=== PATIENT | male | born 1980 | race Two or more races ===

== ENCOUNTER 2025-03-08 10:06 | Emergency (ER) | payer MEDICAID, OTHER ==
[~2025-03-08] VITALS: Ht 185.4 cm; Wt 161.7 kg
--- NOTE | 2025-03-08 10:39 | ED.PDOC ---
History of Present Illness HPI Comments HPI: 45y M who presents to the ED for chief complaint of spasms. - pt states for the past 1 hour, he has been having spasms in neck with associated whole body chills - pt states he is ETOH drinker and states he drinks daily and las night drank approx. 25 beers which he states is normal - pt states he last drank 1 hours prior and states he started having symptoms since - pt in the ED, otherwise is ambulating with scooter due to recent L foot surgery - pt otherwise denies drug use or illicit substance use Past Medical history: anxiety, depression, DM, hyperlipidemia, HTN Past Surgical history: cardiac stent, L foot surgery, bilateral shoulder surgery Medications: Plavix, Lexapro, losartan Allergies: nkda Social History: heavy ETOH, denies tobacco use, denies drug use HPI: Poor Historian. REVIEW OF SYSTEMS: CONSTITUTIONAL: Denies acute: fever, diaphoresis, HEAD: Denies acute: headache, photophobia Eyes: Denies acute: Double vision, vision loss, eye pain, eye discharge. EARS: Denies acute: tinnitus, hearing loss, ear discharge, ear pain, THROAT: Denies acute: sore throat, swelling, difficulty swallowing , pain with swallowing, change in voice. NECK: Denies acute: neck pain, neck swelling, stiff neck. HEART: Denies acute : chest pain, palpitations, LUNGS: Denies acute: SOB, wheezing, cough, hemoptysis ABDOMEN: Denies acute: abdominal pain, Nausea, Vomiting, diarrhea, melena , hematemesis, hematochezia SKIN: Denies acute: rash, redness, lesions, itchiness. EXTREMITIES: Denies acute: calf pain, numbness, weakness, denies pain in extremity. Denies acute: Low back pain. Neuro: Denies acute: focal neurological deficit, motor or sensory focal neurological deficit, seizure like activity, confusion, dizziness, change in mental status, loss of bowel or bladder function, cauda equina like symptoms. : Denies acute: dysuria, hematuria, flank pain, increase in urinary frequency. PSYCH: Denies acute: hallucination, suicidal ideation, homicidal ideation. PHYSICAL EXAM: General: -----mild---acute distress, awake and alert. Head: normocephalic, atraumatic. Neck: supple, trachea is midline, no swelling. Throat: Normal phonation. Eyes:, no erythema, no purulent discharge, no proptosis, no icterus. Heart: regular tachycardia, no significant murmur appreciated. Lungs: no apparent respiratory distress, Able to speak in full sentences. No wheezing, no rhonchi, no crackles. No stridors Clear to auscultation bilaterally. Abdomen: non tender to palpation, non distended, soft, no guarding, no rebound, + bowel sounds. Obese Neuro: Awake, Alert, oriented to name, self, situation, follows commands. Slight tremors. GCS=15. Speech is normal. Skin: no petechia, no purpura, no cyanosis, non-pale, not jaundice. Lower extremities: --2/4 bilateral - Pitting edema no deformity, no focal swelling, no calf TTP. Makes eye contact. moves all four extremities. Face: no apparent facial droop. Ambulating in the ED with a scooter ED COURSE: Chief Complaint: Withdrawal Time Seen by MD: 10:59 Primary Care Provider: LAYLA Banerjee Notes: Medications, Allergies Allergies: Coded Allergies: NO KNOWN ALLERGIES (Unverified , 03/08/25) Information Source: Patient Mode of Arrival: Ambulatory Was a procedure done? Was a procedure done?: No Differential Dx Considerations may include: Includes but not limited to thyroid disease, encephalopathy, electrolyte abnormality, sepsis, infection, intracranial pathology, drug adverse effects, arrhythmia, kidney insufficiency, ACS, CVA, malignancy, anemia X-Ray, Labs, Meds, VS Vital Signs Date Time Temp Pulse Resp B/P (MAP) Pulse Ox O2 Delivery O2 Flow Rate FiO2 03/08/25 11:03 98.9 99 16 143/81 (101) 94 98.9 03/08/25 11:03 99 17 94 Room Air 03/08/25 10:42 91 03/08/25 10:24 99.2 94 19 121/75 (90) 96 99.2 Lab Test 03/08/25 13:48 03/08/25 11:53 03/08/25 10:50 03/08/25 10:28 Range/Units Lactic Acid Level 2.5 *H 3.4 *H 0.4-2.0 mmol/L Troponin I High Sensitivity < 3 L 3 L 3 L </=54 ng/L White Blood Count 19.3 H 4.4-10.8 10^3/uL Red Blood Count 5.32 4.5-5.90 10^6/uL Hemoglobin 15.8 13.5-17.5 g/dL Hematocrit 45.4 41.0-53.0 % Mean Corpuscular Volume 85.3 80.0-100.0 fL Mean Corpuscular Hemoglobin 29.6 28.0-32.0 pg Mean Corpuscular Hemoglobin Concent 34.7 32.0-36.0 g/dL Red Cell Distribution Width 14.2 11.8-14.3 % Platelet Count 198 140-450 10^3/uL Mean Platelet Volume 7.8 6.9-10.8 fL Neutrophils (%) (Auto) 91.7 H 37.0-80.0 % Lymphocytes (%) (Auto) 3.5 L 10.0-50.0 % Monocytes (%) (Auto) 4.6 0.0-12.0 % Eosinophils (%) (Auto) 0.0 0.0-7.0 % Basophils (%) (Auto) 0.2 0.0-2.0 % Neutrophils # (Auto) 17.7 H 1.6-8.6 10 ^3/uL Lymphocytes # (Auto) 0.7 0.4-5.4 10 ^3/uL Monocytes # (Auto) 0.9 0-1.3 10 ^3/uL Eosinophils # (Auto) 0 0-0.8 10 ^3/uL Basophils # (Auto) 0 0-0.2 10 ^3/uL Nucleated Red Blood Cells 0.0 % Prothrombin Time 11.4 9.3-11.8 sec Prothrombin Time INR 1.08 0.9-1.15 Activated Partial Thromboplast Time 30.3 24.5-34.5 SEC Sodium Level 132 L 136-145 mmol/L Potassium Level 3.9 3.5-5.1 mmol/L Chloride Level 99 98-107 mmol/L Carbon Dioxide Level 19 L 20-31 mmol/L Anion Gap 14 5-15 Blood Urea Nitrogen 9 9-23 mg/dL Creatinine 0.89 0.700-1.30 mg/dL Glomerular Filtration Rate Calc 108 >90 mL/min BUN/Creatinine Ratio 10.1 10.0-20.0 Serum Glucose 149 H 74-106 mg/dL Calcium Level 9.2 8.7-10.4 mg/dL Magnesium Level 1.3 L 1.6-2.6 mg/dL Total Bilirubin 1.2 H 0.2-1.0 mg/dL Aspartate Amino Transferase (AST) 47 H <34 U/L Alanine Aminotransferase (ALT) 59 H 7-40 U/L Alkaline Phosphatase 82 46-116 U/L B-Type Natriuretic Peptide 59.70 0-100 pg/mL Total Protein 7.6 5.7-8.2 g/dL Albumin 4.5 3.2-4.8 g/dL Plasma/Serum Blood Alcohol 12.7 H <10 mg/dL Urine Color Colorless Yellow Urine Clarity Clear Clear Urine pH 5.0 5.0-9.0 Urine Specific [place] 1.004 1.001-1.035 Urine Protein Negative Negative Urine Ketones Trace Negative Urine Blood Negative Negative /uL Urine Nitrite Negative Negative Urine Bilirubin Negative Negative Urine Urobilinogen Normal Negative mg/dL Urine Leukocyte Esterase Negative Negative /uL Urine RBC <1 0 - 3 /hpf Urine Microscopic WBC < 1 0-3 /HPF Urine Squamous Epithelial Cells Few <5 /hpf Urine Bacteria Few H None Seen /hpf Urine Glucose Normal Normal mg/dL Urine Opiates Screen Neg NEGATIVE Urine Fentanyl Screen Neg NEGATIVE Urine Barbiturates Screen Neg NEGATIVE Urine Phencyclidine Screen Neg NEGATIVE Urine Amphetamines Screen Neg NEGATIVE Urine Benzodiazepines Screen Neg NEGATIVE Urine Cocaine Screen Neg NEGATIVE Urine Cannabinoids Screen Neg NEGATIVE Microbiology Date/Time Source Procedure Growth Status 03/08/25 12:46 Blood Blood Culture - Preliminary NO GROWTH AFTER 24 HOURS OF INCUBATION. Resulted 03/08/25 12:39 Blood Blood Culture - Preliminary NO GROWTH AFTER 24 HOURS OF INCUBATION. Resulted [facility] [id number] [place] [id number] Ph: [phone] DIAGNOSTIC IMAGING Diagnostic Imaging Report : [id number] Signed PATIENT: JULES PETERSEN ACCT: [id number] UNIT: [id number] : 1980 LOC: ER ROOM / BED: / AGE / SEX: 45 / M ADM STATUS: REG ER SERVICE 1153 ORDERING PHYSICIAN: KENNA ALLISON DO PROCEDURE(s): BLDVT - BiLat Lower DVT REASON: sepsis ORDER NUMBER(s): [id number], ACCESSION NUMBER(s): [id number] Bilateral lower extremity venous duplex Clinical History: sepsis Comparison: None Technique: Duplex Doppler evaluation of the deep venous systems of both lower extremities from the common femoral veins to the popliteal veins including color Doppler and spectral/pulsed waveform analysis was performed. Findings: RIGHT SIDE: The common femoral vein demonstrates appropriate compressibility and waveform variability. There is compressibility/patency of the great saphenous vein at the proximal thigh. The femoral vein demonstrates appropriate compressibility and waveform variability. The deep femoral vein demonstrates appropriate compressibility and waveform variability. The popliteal vein demonstrates appropriate compressibility and waveform variability. There is normal compressibility at the tibioperoneal trunk. LEFT SIDE: The common femoral vein demonstrates appropriate compressibility and waveform variability. There is compressibility/patency of the great saphenous vein at the proximal thigh. The femoral vein demonstrates appropriate compressibility and waveform variability. The deep femoral vein demonstrates appropriate compressibility and waveform variability. The popliteal vein demonstrates appropriate compressibility and waveform variability. There is normal compressibility at the tibioperoneal trunk. Impression: No right or left femoropopliteal venous thrombosis. ATED BY: DWAYNE DAVIES MD DICTATED DATE/TIME: 03/08/251248 SIGNED BY: DWAYNE DAVIES MD SIGNED DATE/TIME: 03/08/251248 CC: [place] [address] Ph: [phone] DIAGNOSTIC IMAGING Diagnostic Imaging Report : [id number] Signed PATIENT: JULES PETERSEN ACCT: [id number] UNIT: [id number] : 1980 LOC: ER ROOM / BED: / AGE / SEX: 45 / M ADM STATUS: REG ER SERVICE 1035 ORDERING PHYSICIAN: KENNA ALLISON DO PROCEDURE(s): CXRP - CHEST PORTABLE REASON: CHILLS ORDER NUMBER(s): [id number], ACCESSION NUMBER(s): [id number] EXAM: XY CHEST PORTABLE HISTORY: CHILLS COMPARISON: None TECHNIQUE: Portable AP view of the chest was performed. FINDINGS: No pneumothorax, consolidative infiltrates, or pulmonary edema. There is mild central peribronchial thickening. The heart is not enlarged. There is thoracic degenerative disc disease. IMPRESSION: Mild reactive airways disease. The lungs are otherwise clear. ATED BY: HECTOR GRIFFITH MD DICTATED DATE/TIME: 03/08/25 1109 SIGNED BY: HECTOR GRIFFITH MD SIGNED DATE/TIME: 03/08/25 1109 CC: Time of 1ST Reevaluation: 00:00 Reevaluation 1ST: Patient Education/Counseling: Diagnosis, Treatment Family Education/Counseling: No Family Present Comments Patient presented with the above HPI.------workup was initiated. patient was found with the above mentioned diagnosis. the following medications were ordered: please refer to order lists of meds and tests obtained by myself Dr. Allison. Patient ED course and VS have been stabilized. Patient has been reassessed in the ED and remained in a stable condition. Pertinent incidental findings were discussed with the patient and/or family. Patient/family voices understanding and is agreeable with plan. Patient has been observed in the ED adequate length of time to insure improvement/stability. Escalation of care considered: Consideration of escalation to observation or admission Sepsis protocol was initiated with weight based fluid resuscitation. Patient was ADMITTED to the medicine team for further evaluation and treatment of their presentation. I later I was informed that the patient left against medical advice. All the reports of any imaging studies that were ordered by myself were reviewed by myself. Departure 1 Departure Time of Disposition: 11:54 Impression: Primary Impression: Sepsis Additional Impressions: Leukocytosis Hypomagnesemia Alcohol abuse Disposition: ADMITTED INPATIENT Admit to: Tele Condition: Guarded Discharged With: Self Critical Care Note Critical Care Time?: Yes (45 min-critical care time only) I personally scribed for KENNA ALLISON DO ([email or web address]) on 03/08/25 at 10:39. Electronically submitted by Linda Gutierrez ([email or web address]). I personally scribed for KENNA ALLISON DO ([email or web address]) on 03/08/25 at 11:00. Electronically submitted by Linda Gutierrez ([email or web address]). I personally scribed for KENNA ALLISON DO ([email or web address]) on 03/08/25 at 19:37. Electronically submitted by Linda Gutierrez ([email or web address]). KENNA ALLISON DO Mar 08, 2025 10:39
[2025-03-08] MEDS: SODIUM CHLORIDE 0.9% 1,000 ML IV ONE (10:45)
[2025-03-08 11:01] LABS: Basophils # (auto) 0 10 ^3/uL (0-0.2); Basophils % (auto) 0.2 % (0.0-2.0); Eosinophils # (auto) 0 10 ^3/uL (0-0.8); Hematocrit 45.4 % (41.0-53.0); Hemoglobin 15.8 g/dL (13.5-17.5); Lymphocytes # (auto) 0.7 10 ^3/uL (0.4-5.4); Lymphocytes % (auto) 3.5 % (10.0-50.0); Mean Corpuscular Hemoglobin 29.6 pg (28.0-32.0); Mean Corpuscular Hgb Conc. 34.7 g/dL (32.0-36.0); Mean Corpuscular Volume 85.3 fL (80.0-100.0); Monocytes # (auto) 0.9 10 ^3/uL (0-1.3); Monocytes % (auto) 4.6 % (0.0-12.0); Neutrophils # (auto) 17.7 10 ^3/uL (1.6-8.6); Neutrophils % (auto) 91.7 % (37.0-80.0); Platelet Count (auto) 198 10^3/uL (140-450); Red Blood Cells 5.32 10^6/uL (4.5-5.90); Red Cell Distribution Width 14.2 % (11.8-14.3); White Blood Cell 19.3 10^3/uL (4.4-10.8)
[2025-03-08 11:03] VITALS: BP 143/81; PULSE 99; RESP 17; TEMP 98.9; O2SAT 94
--- NOTE | 2025-03-08 11:11 | DVH ---
EXAM: XY CHEST PORTABLE HISTORY: CHILLS COMPARISON: None TECHNIQUE: Portable AP view of the chest was performed. FINDINGS: No pneumothorax, consolidative infiltrates, or pulmonary edema. There is mild central peribronchial t hickening. The heart is not enlarged. There is thoracic degenerative disc disease. IMPRESSION: Mild reactive airways disease. The lungs are otherwise clear.
[2025-03-08 11:14] LABS: Urine Bacteria FEW /hpf (None Seen); Urine Blood Negative /uL (Negative); Urine Clarity Clear (Clear); Urine Color Colorless (Yellow); Urine Protein, UAD Negative (Negative); Urine Specific Gravity 1.004 (1.001-1.035); Urine Squamous Epithelial Cell FEW /hpf (<5); Urine Urobilinogen Normal (Negative); Urine WBC < 1 /HPF (0-3)
[2025-03-08 11:21] LABS: Alkaline Phosphatase 82 U/L (46-116); Anion Gap 14 (5-15); BUN/Creatinine Ratio 10.1 (10.0-20.0); Blood Alcohol 12.7 mg/dL (<10); Blood Urea Nitrogen 9 mg/dL (9-23); Calcium 9.2 mg/dL (8.7-10.4); Chloride 99 mmol/L (98-107); Potassium 3.9 mmol/L (3.5-5.1); Total Protein 7.6 g/dL (5.7-8.2)
[2025-03-08 11:21] LABS: Amphetamine Screen, Urine Neg (NEGATIVE); Barbiturate Scree,Urine Neg (NEGATIVE); Benzodiazephine Screen, Urine Neg (NEGATIVE); Cannabinoid Screen, Urine Neg (NEGATIVE); Cocaine Screen, Urine Neg (NEGATIVE); Opiate Scree,Urine Neg (NEGATIVE); Phencyclidine Screen, Urine Neg (NEGATIVE)
[2025-03-08 11:22] LABS: Albumin 4.5 g/dL (3.2-4.8)
[2025-03-08 11:23] LABS: Alanine Aminotransferase 59 U/L (7-40); Aspartate Aminotransferase 47 U/L (<34); Bilirubin, Total 1.2 mg/dL (0.2-1.0); Carbon Dioxide 19 mmol/L (20-31); Glucose 149 mg/dL (74-106); Magnesium 1.3 mg/dL (1.6-2.6); Sodium 132 mmol/L (136-145)
[2025-03-08 11:26] LABS: Lactic Acid w/Reflex 3.4 mmol/L (0.4-2.0)
[2025-03-08] MEDS: THIAMINE HCL 100 MG TAB PO ONE (11:28)
[2025-03-08 12:28] LABS: INR 1.08 (0.9-1.15); Partial Thromboplastin Time 30.3 SEC (24.5-34.5); Prothrombin Time 11.4 sec (9.3-11.8)
--- NOTE | 2025-03-08 12:52 | DVH ---
Bilateral lower extremity venous duplex Clinical History: sepsis Comparison: None Technique: Duplex Doppler evaluation of the deep venous systems of both lower extremities from the common femora l veins to the popliteal veins including color Doppler and spectral/pulsed waveform analysis was perf ormed. Findings: RIGHT SIDE: The common femoral vein demonstrates appropriate compressibility and waveform variability. There is compressibility/patency of the great saphenous vein at the proximal thigh. The femoral vein demonstrates appropriate compressibility and waveform variability. The deep femoral vein demonstrates appropriate compressibility and waveform variability. The popliteal vein demonstrates appropriate compressibility and waveform variability. There is normal compressibility at the tibioperoneal trunk. LEFT SIDE: The common femoral vein demonstrates appropriate compressibility and waveform variability. There is compressibility/patency of the great saphenous vein at the proximal thigh. The femoral vein demonstrates appropriate compressibility and waveform variability. The deep femoral vein demonstrates appropriate compressibility and waveform variability. The popliteal vein demonstrates appropriate compressibility and waveform variability. There is normal compressibility at the tibioperoneal trunk. Impression: No right or left femoropopliteal venous thrombosis.
[2025-03-08] MEDS: MAGNESIUM SULFATE 1GM/100ML 100 ML IV SCH (14:14)
[2025-03-08] MEDS: cefTRIAXone 1GM/50ML D5W 50 ML IV ONE (14:14)
[2025-03-08] MEDS: LORazepam 2MG/ML-1ML VIAL IV ONE (14:15)
[2025-03-08 14:26] LABS: Lactic Acid w/Reflex 2.5 mmol/L (0.4-2.0)
--- NOTE | 2025-03-08 17:40 | PRN ---
Misceleneous Note Note Note History taking and physical examination was completed in ER Patient refused to be admitted, risks were explained IN detailed to the patient. Patient showed understanding of the risk. Patient decided to leave AMA Patient encouraged to stay for further treatment/stabilization. Patient encouraged to return to the ER if symptoms do not improve or worsen. RAJAN BACA MD Mar 08, 2025 17:40
--- NOTE | 2025-03-09 06:50 | ECG ---
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
== END 2025-03-08 17:05 | disposition left against medical advice (07) ==
LOC: ER 10:06
DX: A41.9 Sepsis, unspecified organism (principal); D72.829 Elevated white blood cell count, unspecified; E83.42 Hypomagnesemia; F10.10 Alcohol abuse, uncomplicated; E11.9 Type 2 diabetes mellitus without complications; E78.5 Hyperlipidemia, unspecified; Z95.5 Presence of coronary angioplasty implant and graft; Z79.899 Other long term (current) drug therapy
CPT/HCPCS: 36415; 71045; 80053; 80307; 80320; 81001; 83605; 83735; 83880; 84484; 85025; 85610; 85730; 87040; 93005; 93970; 96361; 96365; 96366; 96368; 99291; J0696; J3475; J7030; 96367